=== PATIENT | female | born 1990 | race Caucasian/White ===

== ENCOUNTER 2023-07-03 13:43 | Emergency (ER) | payer SELFPAY ==
[~2023-07-03] VITALS: Ht 165.1 cm; Wt 81.6 kg
[2023-07-03 13:50] VITALS: BP_SYST 157; PULSE 102; RESP 18; TEMP 98.3; O2SAT 96
[2023-07-03 15:34] VITALS: BP_SYST 157; PULSE 102; RESP 18; TEMP 98.3; O2SAT 96
== END 2023-07-03 15:32 | disposition home or self-care (01) ==
LOC: SED 13:43
DX: S61.111A Laceration without foreign body of right thumb with damage to nail, initial encounter (principal); Z79.899 Other long term (current) drug therapy; W26.0XXA Contact with knife, initial encounter; Y93.89 Activity, other specified; Y92.89 Other specified places as the place of occurrence of the external cause; Y99.8 Other external cause status
CPT/HCPCS: 99282